=== PATIENT | male | born 1960 ===

== ENCOUNTER 2022-07-20 18:58 | Emergency (ER) | payer OTHER ==
[~2022-07-20] VITALS: Ht 162.6 cm; Wt 86.0 kg
[2022-07-20] MEDS ORDERED: ACETAMINOPHEN 500 MG TABLET PO ONE (20:00)
[2022-07-20] MEDS ORDERED: ONDANSETRON HCL 4 MG TABLET PO ONE (20:00)
[2022-07-20 20:34] VITALS: BP 160/73
== END 2022-07-21 00:03 ==
LOC: EMS 19:07
DX: S09.90XA Unspecified injury of head, initial encounter (principal); W19.XXXA Unspecified fall, initial encounter; Y93.89 Activity, other specified; Y92.89 Other specified places as the place of occurrence of the external cause; Y99.8 Other external cause status
CPT/HCPCS: 99284; 70450; 73030; 72125; Q0162